=== PATIENT | female | born 1960 | race Caucasian/White ===

== ENCOUNTER → 2017-08-05 | Outpatient (CLI) | payer OTHER ==
[2015-02-01 23:03] VITALS: BP 132/72
--- NOTE | 2017-08-05 16:55 | MRI ---
MR left tibia and fibula without contrast Indication: Left calf pain and swelling. Technique: Multiplanar multi sequence imaging through the left calf without contrast. Skin marker judd jessica. Comparison: No recent similar priors available. Findings: Limited images through the knee show medial femorotibial degenerative change without bone m arrow signal abnormality or fracture. Small knee joint effusion noted. Tibia and fibula are intact. At the medial gastrocnemius along the myotendinous junction extending from the proximal origin in the upper calf on axial image 8 caudally along the superficial fascia and muscle belly 2 axial image 37 is large heterogeneous T2 hyperintense, T1 hypo intense collection with layering debris, probably hem orrhagic blood products. Small fluid also tracks between the soleus muscle and gastrocnemius see axia l image 19. The lateral calf and anterior compartment appear normal. Neurovascular structures are int act. Impression: 1. High-grade myotendinous junction tear of the medial gastrocnemius, with large hematoma compressing the remaining muscle belly. 2. Edema is seen within the muscle belly, and debris within the collection is compatible with blood p roducts. 3. Degenerative change other findings as above without acute fracture 4. Given the size the fluid collection, which appears contained within the fascia of the medial gastr ocnemius, care is recommended to evaluate for compartment syndrome. Reported By:
== END | disposition home or self-care (01) ==
LOC: RAD 12:32
PROVIDERS: ATTEND Internal Medicine
DX: R60.0 Localized edema (principal); M79.605 Pain in left leg; S86.112A Strain of other muscle(s) and tendon(s) of posterior muscle group at lower leg level, left leg, initial encounter; X58.XXXA Exposure to other specified factors, initial encounter; S80.12XA Contusion of left lower leg, initial encounter
CPT/HCPCS: 73718